=== PATIENT | male | born 1985 | race Caucasian/White ===

== ENCOUNTER 2021-11-24 15:10 | Outpatient (RCR) | payer OTHER | END 2021-11-26 | disposition home or self-care (01) | LOC: WSOH | DX: S20.221D Contusion of right back wall of thorax, subsequent encounter (principal); I10 Essential (primary) hypertension; K21.9 Gastro-esophageal reflux disease without esophagitis; Q27.30 Arteriovenous malformation, site unspecified; M19.90 Unspecified osteoarthritis, unspecified site; H93.19 Tinnitus, unspecified ear; Y99.0 Civilian activity done for income or pay ==

== ENCOUNTER 2021-12-26 15:34 | Outpatient (RCR) | payer OTHER | END 2021-12-27 | LOC: WSOH | DX: S20.221D Contusion of right back wall of thorax, subsequent encounter (principal); I10 Essential (primary) hypertension; T78.40XA Allergy, unspecified, initial encounter; K21.9 Gastro-esophageal reflux disease without esophagitis; Q33.9 Congenital malformation of lung, unspecified; M19.90 Unspecified osteoarthritis, unspecified site; H93.19 Tinnitus, unspecified ear; Y99.0 Civilian activity done for income or pay ==